=== PATIENT | male | born 1970 | race Caucasian/White ===

== ENCOUNTER 2019-01-08 20:18 | Emergency (ER) | payer OTHER, SELFPAY ==
[2019-01-08 20:19] VITALS: BP 156/98; PULSE 90; RESP 14; TEMP 36.7; O2SAT 99
[2019-01-08 20:42] LABS: Add Manual Diff / Slide Review NO; Basophils Absolute Auto 100 /uL (0-100); Eosinophils Absolute Auto 0 /uL (0-450); Eosinophils Percent Auto 0.5 % (2-4); Hematocrit 43.1 % (41-53); Hemoglobin 14.6 g/dL (13.5-17.5); Lymphocytes Absolute Auto 3000 /uL (1100-4500); Lymphocytes Percent Auto 31.5 % (25-40); Mean Corpuscular HGB Conc 33.8 % (30-36); Mean Corpuscular Hemoglobin 29.9 PG (26-34); Mean Corpuscular Volume 88.4 fL (80-100); Monocytes Absolute Auto 700 /uL (0-900); Monocytes Percent Auto 7.3 % (3-14); Neutrophils Absolute Auto 5700 /uL (1500-7000); Neutrophils Percent Auto 59.7 % (50-75); Platelet Count 282 X10^3/uL (150-400); Red Blood Cell Count 4.88 X10^6/uL (4.5-5.9); Red Cell Distribution Width 12.5 % (11.6-14.8); White Blood Cell Count 9.6 X10^3/uL (4.5-11.0)
[2019-01-08 20:54] LABS: PTT Partial Thromboplastin Tim 32 SECONDS (26.4-36.2)
[2019-01-08 20:57] LABS: Alanine Aminotransferase 105 IU/L (21-72); Albumin 4.4 g/dL (3.5-5.0); Albumin Globulin Ratio 1.5 (1.0-2.8); Alkaline Phosphatase 92 U/L (38-126); Aspartate Aminotransferase 49 IU/L (17-59); Bilirubin Total 0.6 mg/dL (0.2-1.3); Blood Urea Nitrogen 16 mg/dL (9-20); Carbon Dioxide 29 mmol/L (22-32); Chloride 102 mmol/L (98-107); Creatine Kinase 168 U/L (55-170); Estimated Glomerular Filt Rate > 60.0 mL/min (>60); Globulin 2.9 g/dL (1.7-4.1); Glucose 94 mg/dL (70-100); HEMOLYSIS < 15 (0-50); Lipase 171 U/L (23-300); Potassium 3.4 mmol/L (3.4-5.1); Sodium 139 mmol/L (137-145); Total Protein 7.3 g/dL (6.3-8.2)
[2019-01-08 21:09] LABS: Troponin I < 0.012 ng/mL (0.01-0.034)
[2019-01-08 21:12] LABS: CKMB % Relative Index 0.4 % (1.5-5.0); Creatine Kinase MB 0.73 ng/mL (<2.37)
== END 2019-01-08 21:37 | disposition left against medical advice (07) ==
PROVIDERS: Emergency Provider Emergency Medicine; Family Provider Family Medicine; PCP Family Medicine
DX: R00.2 Palpitations (principal)
CPT/HCPCS: 36415; 80053; 82550; 82553; 83690; 84484; 85025; 85610; 85730; 93005; 99282

== ENCOUNTER → 2019-01-16 08:55 | Outpatient (CLI) | payer OTHER, SELFPAY ==
[2019-01-16 09:17] LABS: Influenza A and B by PCR Rapid Negative (Negative)
== END ==
PROVIDERS: Family Provider Family Medicine; PCP Family Medicine; Visit Provider Physician Assistant
DX: R68.89 Other general symptoms and signs (principal)
CPT/HCPCS: 87400

== ENCOUNTER → 2019-01-16 09:16 | Outpatient (CLI) | payer OTHER, SELFPAY ==
--- NOTE | 2019-01-16 09:19 | DI.RAD.S_ITS ---
PROCEDURE: XR CHEST 2V INDICATIONS: cough TECHNIQUE: 2 views of the chest were acquired. COMPARISON: [facility], CHEST 1 VIEW, 02/28/2012, 12:08. [facility], CHEST 2 VIEW, 12/11/2009, 14:27. FINDINGS: Surgical changes and devices: None. Lungs and pleura: Lungs are abnormal with a mild interstitial prominence, previously present and with no appreciable change considering differences in technique. No pleural effusions or pneumothorax. Mediastinum: Mediastinal contours are normal. Heart size is normal. Bones and chest wall: No suspicious bony abnormalities. Soft tissues appear unremarkable. 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 A pneumonia is not identified. Dictated by: Otoniel Jackson M.D. on 01/16/2019 at 9:38 Approved by: Otoniel Jackson M.D. on 01/16/2019 at 9:40
== END ==
PROVIDERS: Family Provider Family Medicine; PCP Family Medicine; Visit Provider Physician Assistant
DX: R05 Cough (principal); R68.89 Other general symptoms and signs
CPT/HCPCS: 71046; 87400

== ENCOUNTER → 2020-08-25 12:36 | Outpatient (CLI) | payer OTHER, SELFPAY ==
[2020-08-27 08:22] LABS: COVID19 Sendout Not Detected (Not Detect)
== END ==
PROVIDERS: PCP Family Medicine; Visit Provider Physician Assistant
DX: Z11.59 Encounter for screening for other viral diseases (principal)
CPT/HCPCS: 87635

== ENCOUNTER 2020-08-28 11:46 | Day surgery (SDC) | payer OTHER, SELFPAY ==
[2020-08-28] VITALS (7 sets, daily range): BP systolic 113–126; BP diastolic 74–92; PULSE 67–76; RESP 12–18; TEMP 36.4–37.1; O2SAT 90–98; BMI 27.3
--- NOTE | 2020-08-28 | PATH_ITS ---
[facility] Accession Number: [id number] . 01 Material submitted: . PART A: GASTRIC BIOPSY PART B: esophagus, E-G Junction - GE JUNCTION BIOPSY . 01 Clinical history: . SDC . 02 Diagnosis: A. Designated Gastric, Biopsy: Squamous and squamocolumnar junctional mucosa with no diagnostic abnormality. Negative for intestinal metaplasia by alcian blue stain. Negative for dysplasia and malignancy. . B. Designated Gastroesophageal Junction, Biopsy: Squamous mucosa with a few prominent submucosal vessels. Intraepithelial eosinophils are not increased. Negative for dysplasia and malignancy. [facility] 09/03/2020 1557 Local . 02 Electronically signed: . Renay Berrios MD, Pathologist NPI- [id number] . 01 Gross description: . A. Specimen A is received in formalin, labeled gastric and consists of two ortiz fragments of soft tissue, measuring 0.4 x 0.3 x 0.2 cm in aggregate. The specimen is entirely submitted in cassette A1. B. Specimen B is received in formalin, labeled GE junction and consists of a 0.5 x 0.2 x 0.2 cm ortiz fragment of soft tissue, which is entirely submitted in cassette B1. ([id number]) /[facility] 08/29/2020 1557 Local . 02 Microscopic: . A. An alcian blue stain was performed to evaluate for intestinal metaplasia and is negative. The control stain showed appropriate reactivity. . A-B. Additional levels were examined. . * This test was developed and its performance characteristics determined by [employer]. It has not been cleared or approved by the U.S. Food and Drug Administration. The FDA has determined that such clearance or approval is not necessary. This test is used for clinical purposes. It should not be regarded as investigational or for research. . 02 Pathologist provided ICD-10: K21.9 . 02 CPT . 271764, 138712, [id number] Performed at: [facility] [address] [id number] MD Noam Norwood MD Phone: [phone] Performed at: [facility] [id number] [place], [place] [id number] MD Renay Berrios MD Phone: [phone]
[2020-08-28] MEDS: LACTATED RINGERS 1,000 ML 200 ML IV (12:19)
--- NOTE | 2020-08-28 12:57 | PM.PREOP ---
Pre-operative Note COVID-19 COVID-19 status: Negative Interval Note History & Physical reviewed/Exam performed by Physician: Yes Changes to H&P: No
[2020-08-28] MEDS: LIDOCAINE 4% SOLN 50 ML 20 ML TOP (13:00)
[2020-08-28] MEDS: fentaNYL 250 MCG/5 ML INJ IV (13:00)
[2020-08-28] MEDS: MIDAZOLAM 5 MG/5 ML VIAL IV ×2 (13:01→13:13)
--- NOTE | 2020-08-28 13:20 | PM.OP.ENDO ---
Operative Date/Time/Diagnoses Date of procedure: 08/28/20 Time of procedure: 13:20 Pre-op diagnosis: Gastroesophageal reflux Post-op diagnosis: same Procedure & Clinicians Study performed: Esophagoduodenoscopy Same procedure as scheduled: Yes Indications: 49-year-old man with chronic gastroesophageal reflux here for screening EGD Surgeon: Sage Gonsalves Procedure Notes SCOAP/Timeout: Performed Procedure in detail: Patient placed in left lateral decubitus position. Time out was performed. Procedural sedation was administered with Versed and Fentanyl. A bite block was placed. the scope was inserted into the mouth and advanced through the esophagus and into the stomach. The pylorus was intubated and the duodenum was normal to the 2nd portion. The scope was retroflexed within the stomach and there was a small hiatal hernia. There was some mild gastritis at the gastric cardia which was biopsied.. The scope was withdrawn into the esophagus the Z line was seen at 35 cm from the incisions. There was no Crenshaw's esophagitis or masses or strictures. Two random biopsies of the GE junction were formed. Stomach was desufflated and scope removed. Patient tolerated procedure well. Sedation minutes: 8 Findings: gastritis and hiatal hernia Specimen(s): other (GE junction, gastric) Complications: none Impression: Gastritis Post-procedure Recommendations: Continue medication(s) (Omeprazole) and Will call with biopsy results Disposition: same day surgery
== END 2020-08-28 14:10 | disposition home or self-care (01) ==
PROVIDERS: PCP Family Medicine; Referring Provider Surgery; Visit Provider Surgery
PROC: 0DJ08ZZ Inspection of Upper Intestinal Tract, Via Natural or Artificial Opening Endoscopic (ICD-10-PCS; CPT 43235; principal; 2020-08-28 13:00)
DX: K21.9 Gastro-esophageal reflux disease without esophagitis (principal); K44.9 Diaphragmatic hernia without obstruction or gangrene
CPT/HCPCS: 43239; 99152; J2250; J3010

== ENCOUNTER → 2021-08-08 07:58 | Outpatient (CLI) | payer OTHER, SELFPAY ==
[2021-08-08 09:07] LABS: Add Manual Diff / Slide Review NO; Basophils Absolute Auto 100 /uL (0-100); Eosinophils Absolute Auto 0 /uL (0-450); Eosinophils Percent Auto 0.6 % (2-4); Hemoglobin 14.8 g/dL (13.5-17.5); Lymphocytes Absolute Auto 1900 /uL (1100-4500); Lymphocytes Percent Auto 24.6 % (25-40); Mean Corpuscular HGB Conc 33.6 % (30-36); Mean Corpuscular Hemoglobin 29.6 PG (26-34); Mean Corpuscular Volume 88.2 fL (80-100); Monocytes Absolute Auto 600 /uL (0-900); Monocytes Percent Auto 8.1 % (3-14); Neutrophils Absolute Auto 5100 /uL (1500-7000); Neutrophils Percent Auto 65.7 % (50-75); Platelet Count 292 X10^3/uL (150-400); Red Cell Distribution Width 12.3 % (11.6-14.8); White Blood Cell Count 7.8 X10^3/uL (4.5-11.0)
[2021-08-08 10:15] LABS: Alanine Aminotransferase 96 IU/L (<50); Albumin 4.4 g/dL (3.5-5.0); Albumin Globulin Ratio 1.6 (1.0-2.8); Alkaline Phosphatase 96 U/L (38-126); Aspartate Aminotransferase 45 IU/L (17-59); BUN Creatinine Ratio 15.2 (6-22); Bilirubin Total 0.5 mg/dL (0.2-1.3); Blood Urea Nitrogen 15 mg/dL (9-20); Calcium 9.4 mg/dL (8.4-10.2); Carbon Dioxide 29 mmol/L (22-32); Chloride 104 mmol/L (98-107); Cholesterol 199 mg/dL (140-199); Estimated Glomerular Filt Rate > 60.0 mL/min (>60); Globulin 2.8 g/dL (1.7-4.1); Glucose 97 mg/dL (70-100); HDL Cholesterol 36 mg/dL (40-60); HEMOLYSIS < 15 (0-50); LDL Cholesterol Calculated 123 mg/dL (<100); Sodium 142 mmol/L (137-145); Total Protein 7.2 g/dL (6.3-8.2); Triglycerides 198 mg/dL (35-150)
[2021-08-13 07:35] LABS: Percent Free Testosterone 2.76 % (1.50-4.20); Testosterone Free 10.57 ng/dL (5.00-21.00); Testosterone Total 382.9 ng/dL (264.0-916.0)
== END ==
PROVIDERS: PCP Family Medicine; Referring Provider Family Medicine; Visit Provider Family Medicine
DX: R53.83 Other fatigue (principal); E78.5 Hyperlipidemia, unspecified; R13.10 Dysphagia, unspecified
CPT/HCPCS: 36415; 80053; 80061; 84402; 84403; 85025

== ENCOUNTER → 2022-01-31 15:29 | Outpatient (CLI) | payer OTHER, SELFPAY ==
[2022-01-31 16:19] LABS: COVID19 -Nasal RAPID POSITIVE (Negative)
== END ==
PROVIDERS: PCP Family Medicine; Referring Provider Physician Assistant; Visit Provider Physician Assistant
DX: Z20.822 Contact with and (suspected) exposure to COVID-19 (principal)
CPT/HCPCS: 87635

== ENCOUNTER → 2022-10-09 07:53 | Outpatient (CLI) | payer OTHER, SELFPAY ==
[2022-10-09 10:14] LABS: Hematocrit 42.9 % (41-53); Hemoglobin 14.8 g/dL (13.5-17.5); Mean Corpuscular HGB Conc 34.4 % (30-36); Mean Corpuscular Hemoglobin 30.1 PG (26-34); Mean Corpuscular Volume 87.4 fL (80-100); Platelet Count 301 X10^3/uL (150-400); Red Blood Cell Count 4.91 X10^6/uL (4.5-5.9); Red Cell Distribution Width 12.7 % (11.6-14.8); White Blood Cell Count 8.1 X10^3/uL (4.5-11.0)
[2022-10-09 11:08] LABS: Alanine Aminotransferase 55 IU/L (<50); Albumin 4.5 g/dL (3.5-5.0); Albumin Globulin Ratio 1.5 (1.0-2.8); Alkaline Phosphatase 90 U/L (38-126); Aspartate Aminotransferase 30 IU/L (17-59); BUN Creatinine Ratio 19.8 (6-22); Bilirubin Total 0.6 mg/dL (0.2-1.3); Blood Urea Nitrogen 18 mg/dL (9-20); Calcium 9.3 mg/dL (8.4-10.2); Carbon Dioxide 28 mmol/L (22-32); Chloride 101 mmol/L (98-107); Cholesterol 209 mg/dL (140-199); Estimated Glomerular Filt Rate > 60 mL/min (>60); Globulin 3.1 g/dL (1.7-4.1); Glucose 94 mg/dL (70-100); HDL Cholesterol 38 mg/dL (40-60); HEMOLYSIS < 15 (0-50); LDL Cholesterol Calculated 136 mg/dL (<100); Potassium 4.4 mmol/L (3.4-5.1); Sodium 141 mmol/L (137-145); Total Protein 7.6 g/dL (6.3-8.2); Triglycerides 177 mg/dL (35-150)
[2022-10-09 11:12] LABS: TSH w/ Reflex to FT4 1.71 uIU/mL (0.47-4.68)
[2022-10-09 11:36] LABS: Prostate Specific Antigen Scrn 1.01 ng/mL (0.1-4.0)
[2022-10-19 05:32] LABS: Percent Free Testosterone 3.81 % (1.50-4.20); Testosterone Free 18.15 ng/dL (5.00-21.00); Testosterone Total 476.3 ng/dL (264.0-916.0)
== END ==
PROVIDERS: PCP Family Medicine; Referring Provider Family Medicine; Visit Provider Family Medicine
DX: E78.00 Pure hypercholesterolemia, unspecified (principal); R53.83 Other fatigue; R74.01 Elevation of levels of liver transaminase levels; Z12.5 Encounter for screening for malignant neoplasm of prostate
CPT/HCPCS: 36415; 80053; 80061; 84402; 84403; 84443; 85027; G0103

== ENCOUNTER → 2024-03-01 08:15 | Outpatient (CLI) | payer OTHER, SELFPAY ==
[2024-03-01 09:01] LABS: Add Manual Diff / Slide Review NO; Basophils Absolute Auto 100 /uL (0-100); Basophils Percent Auto 0.8 % (0-2); Eosinophils Absolute Auto 0 /uL (0-450); Eosinophils Percent Auto 0.4 % (2-4); Hematocrit 41.6 % (41-53); Hemoglobin 14.5 g/dL (13.5-17.5); Lymphocytes Absolute Auto 1900 /uL (1100-4500); Lymphocytes Percent Auto 23.2 % (25-40); Mean Corpuscular HGB Conc 34.9 % (30-36); Mean Corpuscular Hemoglobin 30.5 PG (26-34); Mean Corpuscular Volume 87.5 fL (80-100); Monocytes Absolute Auto 500 /uL (0-900); Monocytes Percent Auto 6.2 % (3-14); Neutrophils Absolute Auto 5700 /uL (1500-7000); Neutrophils Percent Auto 69.4 % (50-75); Platelet Count 279 X10^3/uL (150-400); Red Blood Cell Count 4.75 X10^6/uL (4.5-5.9); Red Cell Distribution Width 12.6 % (11.6-14.8); White Blood Cell Count 8.3 X10^3/uL (4.5-11.0)
[2024-03-01 09:07] LABS: Hemoglobin A1C% w Est Avg Glu 5.1 % (4.0-6.0)
[2024-03-01 09:17] LABS: Alanine Aminotransferase 32 IU/L (<50); Albumin 4.3 g/dL (3.5-5.0); Albumin Globulin Ratio 1.5 (1.0-2.8); Alkaline Phosphatase 87 U/L (38-126); Aspartate Aminotransferase 24 IU/L (17-59); BUN Creatinine Ratio 18.4 (6-22); Bilirubin Total 0.5 mg/dL (0.2-1.3); Blood Urea Nitrogen 16 mg/dL (9-20); Calcium 9.3 mg/dL (8.4-10.2); Carbon Dioxide 28 mmol/L (22-32); Chloride 105 mmol/L (98-107); Cholesterol 270 mg/dL (140-199); Estimated Glomerular Filt Rate > 60 mL/min (>60); Globulin 2.8 g/dL (1.7-4.1); Glucose 96 mg/dL (70-100); HDL Cholesterol 44 mg/dL (40-60); HEMOLYSIS < 15 (0-50); LDL Cholesterol Calculated 197 mg/dL (<100); Potassium 4.3 mmol/L (3.4-5.1); Sodium 140 mmol/L (137-145); Total Protein 7.1 g/dL (6.3-8.2); Triglycerides 145 mg/dL (35-150)
[2024-03-01 09:20] LABS: High Sensitivity CRP - Cardiac 1.8 mg/L (1.0-3.0)
== END ==
PROVIDERS: PCP Family Medicine; Referring Provider Family Medicine; Visit Provider Family Medicine
DX: Z00.00 Encounter for general adult medical examination without abnormal findings (principal); I49.3 Ventricular premature depolarization; E78.5 Hyperlipidemia, unspecified; R73.9 Hyperglycemia, unspecified; R53.83 Other fatigue
CPT/HCPCS: 36415; 80053; 80061; 83036; 85025; 86140

== ENCOUNTER → 2025-02-25 06:59 | Outpatient (CLI) | payer BC, SELFPAY ==
[2025-02-25 07:56] LABS: Add Manual Diff / Slide Review NO; Basophils Absolute Auto 100 /uL (0-100); Basophils Percent Auto 1.6 % (0-2); Eosinophils Absolute Auto 100 /uL (0-450); Eosinophils Percent Auto 1.1 % (2-4); Hematocrit 42.7 % (41-53); Hemoglobin 15.1 g/dL (13.5-17.5); Lymphocytes Absolute Auto 1500 /uL (1100-4500); Lymphocytes Percent Auto 23.2 % (25-40); Mean Corpuscular HGB Conc 35.4 % (30-36); Mean Corpuscular Volume 87.7 fL (80-100); Monocytes Absolute Auto 500 /uL (0-900); Monocytes Percent Auto 7.2 % (3-14); Neutrophils Absolute Auto 4200 /uL (1500-7000); Neutrophils Percent Auto 66.9 % (50-75); Platelet Count 284 X10^3/uL (150-400); Red Blood Cell Count 4.87 X10^6/uL (4.5-5.9); Red Cell Distribution Width 13.1 % (11.6-14.8); White Blood Cell Count 6.3 X10^3/uL (4.5-11.0)
[2025-02-25 08:06] LABS: Hemoglobin A1C% w Est Avg Glu 4.8 % (4.0-6.0)
[2025-02-25 08:19] LABS: Alanine Aminotransferase 59 IU/L (<50); Albumin 4.5 g/dL (3.5-5.0); Albumin Globulin Ratio 1.7 (1.0-2.8); Alkaline Phosphatase 85 U/L (38-126); Aspartate Aminotransferase 40 IU/L (17-59); Blood Urea Nitrogen 16 mg/dL (9-20); Calcium 9.2 mg/dL (8.4-10.2); Carbon Dioxide 28 mmol/L (22-32); Chloride 105 mmol/L (98-107); Cholesterol 266 mg/dL (140-199); Estimated Glomerular Filt Rate > 60 mL/min (>60); Globulin 2.6 g/dL (1.7-4.1); Glucose 105 mg/dL (70-99); HDL Cholesterol 44 mg/dL (40-60); HEMOLYSIS < 15 (0-50); LDL Cholesterol Calculated 183 mg/dL (<100); Potassium 4.1 mmol/L (3.4-5.1); Sodium 140 mmol/L (137-145); Total Protein 7.1 g/dL (6.3-8.2); Triglycerides 194 mg/dL (35-150)
== END ==
PROVIDERS: PCP Family Medicine; Referring Provider Family Medicine; Visit Provider Family Medicine
DX: Z00.00 Encounter for general adult medical examination without abnormal findings (principal); I49.3 Ventricular premature depolarization; E78.5 Hyperlipidemia, unspecified; R73.9 Hyperglycemia, unspecified; R53.83 Other fatigue
CPT/HCPCS: 36415; 80053; 80061; 83036; 85025

== ENCOUNTER → 2025-02-27 14:46 | Outpatient (CLI) | payer BC, SELFPAY ==
[2025-02-27 16:42] LABS: Testosterone 328 ng/dL (71.8-623)
== END ==
PROVIDERS: PCP Family Medicine; Referring Provider Family Medicine; Visit Provider Nurse Practitioner Family
DX: K76.0 Fatty (change of) liver, not elsewhere classified (principal); E78.5 Hyperlipidemia, unspecified; R79.89 Other specified abnormal findings of blood chemistry
CPT/HCPCS: 36415; 84403